=== PATIENT | male | born 1980 | race African-American/Black ===

== ENCOUNTER 2016-10-31 12:28 | Emergency (ER) | payer OTHER ==
[~2016-10-31 12:28] MED LIST: ALPRAZOLAM PO; AMOXICILLI250 MG/5 M PO; KEFLEX500 M1 PO; LORTAB 10/500 T1 TAB PO; LORTAB 5/500 TA1 TA2 PO; NO MEDICATIONS; PHENERGAN25 MG PO
[2016-10-31] MEDS ORDERED: ALPRAZOLAM (12:32)
[2016-10-31] MEDS ORDERED: CLARITIN10 M4 (12:32)
[2016-10-31] MEDS ORDERED: FAMVIR500 MG (12:33)
[2016-10-31 12:50] LABS: URINE SOURCE CLEAN CATCH
[2016-10-31 12:52] LABS: MICRO INDICATED? NO; URINE APPEARANCE CLEAR; URINE BILIRUBIN NEG (NEG); URINE BLOOD NEG (NEG); URINE COLOR YELLOW; URINE GLUCOSE NEG (NORM); URINE KETONE NEG (NEG); URINE LEUKOCYTE ESTERASE NEG (NEG); URINE NITRATE NEG (NEG); URINE PROTEIN NEG (NEG); URINE SPECIFIC GRAVITY <=1.005 (1.003-1.035); URINE UROBILINOGEN 0.2 MG/DL (NORM)
[2016-11-02 16:33] LABS: CHLAMYDIA TRACH Not Detected (Not Detected); N GONOR Not Detected (Not Detected)
== END 2016-10-31 13:24 | disposition home or self-care (01) ==
LOC: SED 12:28
PROVIDERS: Physician Assistant
DX: Z20.2 Contact with and (suspected) exposure to infections with a predominantly sexual mode of transmission (principal); F41.9 Anxiety disorder, unspecified; F32.9 Major depressive disorder, single episode, unspecified; F17.200 Nicotine dependence, unspecified, uncomplicated; Z86.19 Personal history of other infectious and parasitic diseases
CPT/HCPCS: 81003; 87491; 87591; 96372; 99283; J0696